=== PATIENT | male | born 1990 | race Caucasian/White ===

== ENCOUNTER 2020-05-01 16:59 | Emergency (ER) | payer MEDICAID, SELFPAY ==
[~2020-05-01] VITALS: Ht 175.3 cm; Wt 86.2 kg
[2020-05-01 17:03] VITALS: BP 146/100
--- NOTE | 2020-05-01 17:03 | NUR ---
PT BIBA FROM HOME ON [address]ED BY [place] [employer] FOR DANGER TO SELF. 911 CALLED BY , STATES SHE ARRIVED HOME TO PATIENT ACTING ERRATIC. PT HAD BROKEN GLASS RESULTING IN LACERATIONS TO WRISTS. PT HAD TOLD PD WHEN THEY WERE ON SCENE HE WANTED TO KILL HIMSELF. OFFICER CARYN WROTE 5150 HOLD FOR DANGER TO SELF. PT ARRIVED TO ED IN 4 POINT RESTRAINTS, SCREAMING, RESTLESS, FLEXING, GRUNTING. PT ALSO NOTED TALKING TO HIMSELF, TELLING STAFF TO KILL HIM. PT LAUGHING THEN CRYING WHILE MUMBLING TO HIMSELF.
--- NOTE | 2020-05-01 17:19 | NUR ---
melissa from home for 5150. per ems pt pt jazmyn all day & tried to cut his right wrist & very aggressive.
[2020-05-01] MEDS: ZIPRASIDONE MESYLATE 20 MG/ML VIAL IM ONE (17:25)
[2020-05-01 17:36] LABS: APPEARANCE,URINE CLEAR (CLEAR); BILIRUBIN,URINE NEGATIVE (NEGATIVE); BLOOD, URINE TRACE-I (NEGATIVE); COLOR,URINE YELLOW (YELLOW); LEUKOCYTE ESTERASE ,URINE NEGATIVE (NEGATIVE); NITRITE, URINE NEGATIVE (NEGATIVE); UGLUCOSE NEGATIVE (NEGATIVE)
[2020-05-01 17:45] LABS: BARBITURATE, URINE NEGATIVE ng/ml (NEG <=200); BENZODIAZEPINE, URINE NEGATIVE ng/mL (NEG <=200); CANNABINOID, URINE NEGATIVE ng/mL (NEG <=50); COCAINE, URINE NEGATIVE ng/mL (NEG <=300); OPIATE, URINE NEGATIVE ng/mL (NEG <=2000); PHENCYCLIDINE SCREEN,URINE NEGATIVE ng/mL (NEG <=25)
--- NOTE | 2020-05-01 17:50 | NUR ---
PT IS QUIET AFTER MEDICATION ADMINISTRATION. NO LONGER YELLING, APPEARS TO RESTING, SLEEPING, NO LONGER AGGRESSIVE AT THIS TIME.
[2020-05-01 18:03] LABS: BASOPHILS # (AUTO) 0.1 K/uL (0.00-0.22); BASOPHILS % (AUTO) 0.9 % (0.0-2.0); EOSINOPHILS # (AUTO) 0.2 K/uL (0-0.4); EOSINOPHILS % (AUTO) 2.7 % (0.0-4.0); HEMATOCRIT 45.5 % (36-52); HEMOGLOBIN 15.2 g/dL (12.0-18.0); LYMPHOCYTES % (AUTO) 27.5 % (20.5-51.1); MEAN CORPUSCULAR HEMOGLOBIN 29 pg (27-31); MEAN CORPUSCULAR HGB CONC 34 g/dL (33-37); MEAN CORPUSCULAR VOLUME 86.5 fL (80-94); MONOCYTES # (AUTO) 0.6 K/uL (0.8-1.0); MONOCYTES % (AUTO) 7.8 % (1.7-9.3); NEUTROPHILS # (AUTO) 4.4 K/uL (1.8-7.7); NEUTROPHILS % (AUTO) 61.1 % (42.2-75.2); PLATELET COUNT (AUTO) 255 K/uL (140-450); RED BLOOD CELL COUNT(AUTO) 5.26 MIL/uL (4.20-6.10); RED CELL DISTRIBUTION WIDTH 14.6 % (11.6-13.7); WHITE BLOOD COUNT (AUTO) 7.2 K/uL (4.8-10.8)
[2020-05-01 18:44] LABS: ACETAMINOPHEN < 0.5 ug/ml (10-30); ALBUMIN 4.2 g/dL (3.4-5.0); ANION GAP 17.3 (8-16); ASPARTATE AMINOTRANSFERASE 29 U/L (15-37); CARBON DIOXIDE 25.1 mmol/L (21-32); CHLORIDE 108 mmol/L (98-107); CREATININE 0.7 mg/dL (0.6-1.3); GFR ARICAN-AMERICAN 171 mL/min (>90); GLUCOSE 139 mg/dL (74-106); POTASSIUM 3.4 mmol/L (3.5-5.1); SALICYLATE < 2.8 mg/dL (2.8-20.0); SODIUM SERUM 147 mmol/L (136-145); TOTAL BILIRUBIN 0.3 mg/dL (0.0-1.0); UREA NITROGEN, BLOOD 11 mg/dL (7-18)
--- NOTE | 2020-05-01 19:30 | NUR ---
RECEIVED REPORT FROM GAUTAM MICHEL FOR CONTINUITY OF CARE.
--- NOTE | 2020-05-01 20:30 | NUR ---
PT LAYING IN BED IN NO ACUTE DISTRESS NOTED. BREATHING EVEN & UNLABORED EVIDENCE BY RISE AND FALL OF CHEST WALL. 1:1 STAFF AT ARMS LENGTH TO ENSURE SAFETY. WILL CONTINUE TO MONITOR AT THIS TIME.
--- NOTE | 2020-05-01 21:05 | NUR ---
RECEIVED PHONE CALL FROM MILLIE CHONG) REGARDING UPDATE ON PT STATUS. PT ASLEEP AT THIS TIME UNABLE TO GIVE VERBAL CONSENT TO RELEASE INFO. NOTIFIED MILLIE AND STATED, "SHE WILL CALL TOMORROW".
--- NOTE | 2020-05-01 22:24 | NUR ---
PT AMBULATED TO RESTROOM, STEADY GAIT. ACCOMPANIED TO RESTROOM, RN 1:1 MONITORING.
--- NOTE | 2020-05-01 22:25 | NUR ---
PT AMBULATED TO BACK TO BED, STEADY GAIT. 1:1 RN MONITORING
--- NOTE | 2020-05-02 03:51 | NUR ---
PT LAYING IN BED QUIETLY IN NO ACUTE DISTRESS NOTED. BREATHING EVEN & UNLABORED EVIDENCE BY RISE AND FALL OF CHEST WALL. 1:1 STAFF AT ARMS LENGTH TO ENSURE SAFETY. WILL CONTINUE TO MONITOR AT THIS TIME.
--- NOTE | 2020-05-02 07:20 | NUR ---
REPORT GIVEN TO AMELIA MICHEL FOR CONTINUITY OF CARE.
--- NOTE | 2020-05-02 07:58 | NUR ---
PT REFUSED BREAKFAST TRAY.
--- NOTE | 2020-05-02 10:29 | NUR ---
29 YEARS OLD MALE ALERT ORIENTED X4 PLACED ON 5150 HOLD BY THE POLICE FOR DTS, PATIENT QUIET COOPERATIVE WITH CARE WILL CONTINUE TO MONITOR. TALKED TO PSYCHIATRIST VIA TELE PSYCH.
[2020-05-02 10:30] VITALS: BP 120/80
--- NOTE | 2020-05-02 10:30 | NUR ---
Patient discharged with v/s stable. Patient was cleared by psychiatrist. Written and verbal after care instructions given and explained. Patient alert, oriented and verbalized understanding of instructions. Ambulatory with steady gait. All questions addressed prior to discharge. ID band removed. Patient advised to follow up with PMD. Patient provided with resources for psychiatric services. Rx of Remeron given. Patient educated on indication of medication including possible reaction and side effects. Opportunity to ask questions provided and answered.
== END 2020-05-02 10:30 | disposition home or self-care (01) ==
LOC: MED 16:59
DX: S61.511A Laceration without foreign body of right wrist, initial encounter (principal); R45.851 Suicidal ideations; X78.8XXA Intentional self-harm by other sharp object, initial encounter; Y93.89 Activity, other specified; Y92.89 Other specified places as the place of occurrence of the external cause; Y99.8 Other external cause status; Z20.828 Contact with and (suspected) exposure to other viral communicable diseases
CPT/HCPCS: 36415; 80053; 80305; 81003; 84484; 85025; 87426; 96372; 99285; G0480; G0482; J3486; U0003